=== PATIENT | female | born 1965 | race Caucasian/White ===

== ENCOUNTER 2019-09-15 11:00 | Day surgery (SDC) | payer BC ==
--- NOTE | 2019-09-14 14:07 | HP ---
PREOPERATIVE HISTORY AND PHYSICAL: DATE OF SURGERY/ADMISSION: 09/15/19 - [facility] DATE OF OFFICE VISIT/ENCOUNTER: 08/21/19 ATTENDING SURGEON: Nano Jean Baptiste MD * (DICTATED BY KLAUDIA RAY) PROCEDURE: Trigger release of left ring and small fingers. 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 She complains of triggering of her left ring and small fingers, ongoing for a couple of years. The pain is increasing as are the symptoms of triggering and she would like to have surgery at this point. She denies any associated numbness or tingling and there was no injury. PAST MEDICAL HISTORY: 1. Hypertension. 2. Anxiety/depression. PAST SURGICAL HISTORY: 1. Bilateral carpal tunnel releases. 2. Right cataract removal. 3. Cholecystectomy. 4. Open reduction and internal fixation nasal fracture. CURRENT MEDICATIONS: 1. Aspirin 81 mg daily. 2. Diclofenac sodium ER 100 mg daily. 3. Lexapro 20 mg daily. 4. Lisinopril/hydrochlorothiazide 10/12.5 daily. 5. Prempro. 6. Zomig as needed. ALLERGIES: No known drug allergies. FAMILY MEDICAL HISTORY: Diabetes, heart disease, hypertension, stroke, cancer. SOCIAL HISTORY: The patient is an RN at [employer]. She denies tobacco use. She drinks alcohol on occasion. REVIEW OF SYSTEMS: Negative for general, cephalic, cardiovascular, respiratory , GI, , other musculoskeletal, integumentary, endocrine, neurologic and hematologic symptoms. Infectious Disease: Negative for history of MRSA, hepatitis C, and HIV. PHYSICAL EXAMINATION GENERAL: Well-developed, well-nourished 54-year-old female, in on acute distress. VITAL SIGNS: Height 5 feet 7 inches, weight 184 pounds, pulse rate 88, blood pressure 138/90. HEENT: Normocephalic, atraumatic. Pupils are equal, round and reactive to light and accommodation. Extraocular movements are intact. NECK: Supple. No palpable lymph nodes. Throat is clear. PULMONARY: Lungs are clear to auscultation bilaterally. No wheezes, rales or rhonchi. CARDIOVASCULAR: Regular rate and rhythm. S1, S2. No murmurs, rubs or gallops. No edema. ABDOMEN: Positive bowel sounds, soft, nontender. MUSCULOSKELETAL: On exam of her left hand, there is no visible swelling or ecchymosis. She has full flexion and extension of all of her fingers, but has triggering in the ring and small fingers. Intact neurovascular function. Tenderness to palpation at the A1 pulleys of the ring and small fingers. NEUROLOGIC: Alert and oriented x3. Cranial nerves II through XII are intact. Sensation is intact to light touch. IMPRESSION: Left ring and small finger trigger fingers. PLAN: The patient is scheduled to undergo trigger releases of the left ring and small fingers with Dr. Jean Baptiste on 09/15/19. She will return to the office 10 days postop for followup and suture removal. A prescription for tramadol was e-scribed to the patient's pharmacy for postoperative pain management. KLAUDIA RAY [id number]/[facility] #: [id number] BRIANA
[~2019-09-15 11:00] MED LIST: Acetaminophen TAB* 325 MG PO ONE; Buffered Lidocaine 1% SYRIN* 1 ML/SYRINGE INTRADERM ONE; Famotidine IV* 10 MG/ML 2 ML (20 mg) IV ONE; Gabapentin CAP(*) 300 MG PO ONE; Lactated Ringers 1000 ML Bag* 1,000 ML IV SCH
[2019-09-15] MEDS ORDERED: Famotidine IV* 10 MG/ML 2 ML (20 mg) ONE (12:29)
[2019-09-15] MEDS ORDERED: Gabapentin CAP(*) 300 MG ONE (12:29)
[2019-09-15] MEDS ORDERED: Acetaminophen TAB* 325 MG ONE (12:29)
[2019-09-15] MEDS ORDERED: Lidocaine 1% INJ* 10 MG/ML 30 ML SDV ONE (13:36)
[2019-09-15] MEDS ORDERED: Ondansetron INJ* 2 MG/ML VIAL ONE (13:53)
[2019-09-15] MEDS ORDERED: Propofol* 10 MG/ML 20 ML BTL ONE (13:53)
[2019-09-15] MEDS ORDERED: Dexamethasone IV* 4 MG/ML 1 ML (4 MG) ONE (13:53)
[2019-09-15] MEDS ORDERED: Midazolam* 1 MG/ML 2 ML VIAL (2 MG) ONE ×2 (13:53)
[2019-09-15] MEDS ORDERED: Ketorolac INJ* 30 MG/ML 1 ML VIAL ONE (13:53)
[2019-09-15] MEDS ORDERED: fentaNYL* 50 MCG/ML 2 ML VIAL (100 MCG VIAL) ONE (14:04)
[2019-09-15] MEDS ORDERED: Naloxone* 0.4 MG/ML 1 ML VIAL IV PRN (14:29)
[2019-09-15] MEDS ORDERED: HYDROcodone/ACETAMIN 5-325 MG* 1 TAB PO PRN (14:29)
[2019-09-15 14:58] VITALS: BP 124/71
--- NOTE | 2019-09-16 00:26 | OP ---
DATE OF OPERATION: 09/15/[address] [facility] DATE OF : 63 SURGEON: Nano Jean Baptiste MD VAMPER: KLAUDIA Mercer ANESTHESIA: Local MAC. PRE-OP DIAGNOSIS: Trigger fingers, left ring and small finger. POST-OP DIAGNOSIS: Trigger fingers, left ring and small finger. OPERATIVE PROCEDURE: Trigger finger release, left ring and small finger. INDICATIONS: Desiree is a 54-year-old female, who has painful triggering and locking of her left ring and small finger. She presents for trigger finger release. ESTIMATED BLOOD LOSS: Zero. TOURNIQUET TIME: About 15 minutes. DESCRIPTION OF PROCEDURE: The patient was brought to the operating room and was given a sedation anesthetic and a local infiltration of 10 cc of 1% plain lidocaine in the palm of her left hand. The skin of her left hand and forearm was prepped and draped in the usual sterile fashion. The hand and forearm were exsanguinated and the tourniquet elevated to 250 mmHg. A transverse incision was made centered over the A1 peg of the ring and small finger of the left hand. We dissected bluntly through the subcutaneous tissue down to the A1 pulleys. The digital neurovascular bundles were retracted and then both pulleys were incised longitudinally completely releasing the flexor tendons, which were in good condition. There was no abrasion or tenosynovitis. The wound was irrigated and the skin edges were reapproximated with 4-0 nylon suture. The wound was dressed with Xeroform, 4x4, Webril, and an Axel wrap. The patient tolerated the procedure well and was brought to the recovery room in good condition. [id number]/[facility] #: [id number] MTDD
== END 2019-09-15 15:05 | disposition home or self-care (01) ==
LOC: OREAST 11:00
PROVIDERS: ATTEND Orthopaedic Surgery
DX: M65.342 Trigger finger, left ring finger (principal); M65.352 Trigger finger, left little finger; I10 Essential (primary) hypertension; F41.8 Other specified anxiety disorders
CPT/HCPCS: A9270-GY; J1100; J1885; J2250; J2405; J2704; J3010

== ENCOUNTER 2019-10-13 10:17 | Day surgery (SDC) | payer BC ==
--- NOTE | 2019-10-04 14:35 | HP ---
Amended report to enter cosigning physician on report. PREOPERATIVE HISTORY AND PHYSICAL: DATE OF ADMISSION/SURGERY: 10/13/19 DATE OF OFFICE VISIT/ENCOUNTER: 09/25/19 ATTENDING SURGEON: Nano Jean Baptiste MD* PROCEDURE: Trigger releases, right thumb, ring and pinky fingers. 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 She complains of triggering of the right thumb, ring and pinky fingers ongoing for a couple of years. The pain is increasing as are the symptoms of triggering and she would like to have surgery at this point. She denies any associated numbness or tingling and there was no injury. She recently underwent trigger releases on her left hand and has done quite well with that. PAST MEDICAL HISTORY: 1. Hypertension. 2. Anxiety/depression. PAST SURGICAL HISTORY: 1. Trigger releases, left ring and small fingers. 2. Bilateral carpal tunnel releases. 3. Right cataract removal. 4. Cholecystectomy. 5. Open reduction and internal fixation, nasal fracture. CURRENT MEDICATIONS: 1. Aspirin 81 mg daily. 2. Diclofenac sodium ER 100 mg daily. 3. Lexapro 20 mg daily. 4. Lisinopril/hydrochlorothiazide 10/12.5 mg daily. 5. Prempro. 6. Zomig p.r.n. ALLERGIES: No known drug allergies. FAMILY MEDICAL HISTORY: Diabetes, heart disease, hypertension, stroke, cancer. SOCIAL HISTORY: The patient is a registered nurse at [employer]. She denies tobacco use and recreational drug use. She drinks alcohol on occasion. REVIEW OF SYSTEMS: Negative for general, cephalic, cardiovascular, respiratory , GI, , other musculoskeletal, integumentary, endocrine, neurologic, and hematologic symptoms. Infectious Disease: Negative for history of MRSA, hepatitis C, HIV. PHYSICAL EXAMINATION GENERAL: A well-developed, well-nourished 54-year-old female, in no acute distress. VITAL SIGNS: Height 5 feet 7 inches, weight 184 pounds. Pulse rate 81, blood pressure 136/72. HEENT: Normocephalic, atraumatic. Pupils are equal, round, and reactive to light and accommodation. Extraocular movements are intact. Throat is clear. NECK: Supple. No palpable lymph nodes. PULMONARY: Lungs are clear to auscultation bilaterally. No wheezes, rales, or rhonchi. CARDIOVASCULAR: Regular rate and rhythm. S1, S2. No murmurs, rubs, or gallops. No edema. ABDOMEN: Positive bowel sounds. Soft, nontender. MUSCULOSKELETAL: On exam of her right hand, there is no visible swelling or ecchymosis. She has tenderness to palpation at the A1 pulleys of the right thumb, ring and pinky fingers. She has increased pain when she tries to fully flex the fingers. Intact neurovascular function. NEUROLOGIC: Alert and oriented x3. Cranial nerves II through XII are intact. Sensation is intact to light touch. IMPRESSION: Right thumb, ring and pinky finger triggers. PLAN: The patient is scheduled to undergo a trigger release of her right thumb , ring and pinky fingers with Dr. Jean Baptiste on 10/13/19. She will return to the office 10 days postop for followup and suture removal. She has tramadol left from her other recent surgery that she will plan on using for postoperative pain management that will be refilled if needed. KLAUIDA RAY [id number]/[facility] #: [id number] BRIANA
[~2019-10-13 10:17] MED LIST changes: +DiMENhydriNATE IV* 50 MG/ML VIAL IV PUSH PRN; +HYDROcodone/ACETAMIN 5-325 MG* 1 TAB PO PRN; +Naloxone* 0.4 MG/ML 1 ML VIAL IV PRN; +diPHENhydraMINE IV* 50 MG/ML 1 ml VIAL (BENADRYL) IV PRN; +fentaNYL* 50 MCG/ML 2 ML VIAL (100 MCG VIAL) IV PRN
[2019-10-13] MEDS ORDERED: Famotidine IV* 10 MG/ML 2 ML (20 mg) ONE (10:47)
[2019-10-13] MEDS ORDERED: Gabapentin CAP(*) 300 MG ONE (10:47)
[2019-10-13] MEDS ORDERED: Acetaminophen TAB* 325 MG ONE (11:09)
[2019-10-13] MEDS ORDERED: Lidocaine 1% INJ* 10 MG/ML 30 ML SDV ONE (11:12)
[2019-10-13] MEDS ORDERED: Ketorolac INJ* 30 MG/ML 1 ML VIAL ONE (11:45)
[2019-10-13] MEDS ORDERED: Propofol* 10 MG/ML 20 ML BTL ONE (11:45)
[2019-10-13] MEDS ORDERED: Lidocaine 2% PF * 5 ML VIAL ONE (11:45)
[2019-10-13] MEDS ORDERED: fentaNYL* 50 MCG/ML 2 ML VIAL (100 MCG VIAL) ONE (11:45)
[2019-10-13] MEDS ORDERED: Dexamethasone IV* 4 MG/ML 1 ML (4 MG) ONE (11:45)
[2019-10-13] MEDS ORDERED: Midazolam* 1 MG/ML 2 ML VIAL (2 MG) ONE (11:45)
[2019-10-13] MEDS ORDERED: Ondansetron INJ* 2 MG/ML VIAL ONE (11:45)
[2019-10-13 13:13] VITALS: BP 130/69
--- NOTE | 2019-10-13 13:24 | HP ---
DATE OF OPERATION: 10/13/19 [facility] DATE OF : 63 SURGEON: Nano Jean Baptiste MD. WEED ERADICATOR: KLAUDIA Mercer. ANESTHESIA: Local MAC. PRE-OP DIAGNOSIS: Trigger of the right ring, small, and thumb. POST-OP DIAGNOSIS: Trigger of the right ring, small, and thumb. OPERATIVE PROCEDURE: Trigger thumb, ring and small finger trigger release. ESTIMATED BLOOD LOSS: Zero. TOURNIQUET TIME: About 15 minutes. INDICATIONS FOR PROCEDURE: Desiree is a 54-year-old woman who has triggering and locking of her right thumb, ring and small fingers. She has had trigger finger releases on the left hand and did very well with that. She presents for trigger thumb, ring and small finger trigger release on the right hand. DESCRIPTION OF PROCEDURE: The patient was brought to the operating room, was given a sedation anesthetic and a local infiltration of 20 cc of 1% plain lidocaine in the palm of the right hand. The skin of her right upper extremity was prepped and draped in the usual sterile fashion. The hand and forearm were exsanguinated and the tourniquet elevated to 250 mmHg. A transverse incision was made centered over the A1 pulleys of the ring and small fingers on the right hand. These pulleys were incised longitudinally completely releasing the flexor tendons, which were in good condition. Next, a transverse incision was made over the A1 peg of the right thumb and the digital neurovascular bundles were retracted by the health care assistant Annel Cui. The A1 peg was incised longitudinally completely releasing the flexor tendon, which was in good condition. The wounds were irrigated and the skin edges reapproximated with 4-0 nylon suture. The wounds were then dressed with Xeroform, 4x4, Webril , and an Axel wrap. The patient tolerated the procedure well and was brought to the recovery room in good condition. [id number]/[facility] #: [id number] [facility]y
== END 2019-10-13 13:30 | disposition home or self-care (01) ==
LOC: OREAST 10:17
PROVIDERS: ATTEND Orthopaedic Surgery
DX: M65.311 Trigger thumb, right thumb (principal); M65.341 Trigger finger, right ring finger; M65.351 Trigger finger, right little finger
CPT/HCPCS: A9270-GY; J1100; J1885; J2250; J2405; J2704; J3010